=== PATIENT | female | born 1975 | race Two or more races ===

== ENCOUNTER 2022-03-05 16:02 | Emergency (ER) | payer OTHER ==
[~2022-03-05] VITALS: Ht 152.4 cm; Wt 85.7 kg
[2022-03-05] MEDS ORDERED: NAPROZEN (17:10)
[2022-03-05] MEDS ORDERED: PETCID (17:11)
[2022-03-05] MEDS ORDERED: KETO10TA2 PO (20:31)
[2022-03-05] MEDS ORDERED: CIPRO500 MG PO (20:31)
== END 2022-03-05 20:40 | disposition home or self-care (01) ==
LOC: ER 16:02
DX: N20.0 Calculus of kidney (principal); R10.31 Right lower quadrant pain; K76.0 Fatty (change of) liver, not elsewhere classified; Z88.0 Allergy status to penicillin

== ENCOUNTER 2022-04-02 20:45 | Emergency (ER) | payer OTHER ==
[~2022-04-02] VITALS: Ht 172.7 cm; Wt 84.8 kg
[~2022-04-02 20:45] MED LIST: CIPRO500 MG PO; KETO10TA2 PO; NAPROZEN; PETCID
[2022-04-02] MEDS ORDERED: PEPCID AC20 MG PO (22:52)
[2022-04-02] MEDS ORDERED: KETO10TA2 PO (22:52)
== END 2022-04-02 23:04 | disposition home or self-care (01) ==
LOC: ER 20:45
DX: M25.512 Pain in left shoulder (principal)

== ENCOUNTER 2022-10-31 22:51 | Emergency (ER) | payer OTHER ==
[~2022-10-31] VITALS: Ht 175.3 cm; Wt 88.0 kg
[~2022-10-31 22:51] MED LIST changes: +PEPCID AC20 MG PO
[2022-11-01] MEDS ORDERED: TUSNEL LIQUID178 ML PO (02:51)
[2022-11-01] MEDS ORDERED: DUI500 PO (02:51)
== END 2022-11-01 03:10 | disposition home or self-care (01) ==
LOC: ER 22:51
DX: J03.90 Acute tonsillitis, unspecified (principal); Z20.822 Contact with and (suspected) exposure to COVID-19